=== PATIENT | female | born 1965 | race Caucasian/White ===

== ENCOUNTER → 2024-01-12 18:13 | Outpatient (REF) | payer OTHER, SELFPAY | LOC: PAVMRI 18:13 | PROVIDERS: ATTENDING PHYSICIAN Student in an Organized Health Care Education/Training Program; FAMILY PHYSICIAN Nurse Practitioner Adult Health | DX: M25.562 Pain in left knee (principal) | CPT/HCPCS: 73721 ==

== ENCOUNTER 2024-02-22 18:20 | Outpatient (RCR) | payer OTHER, SELFPAY | END 2024-02-22 23:59 | disposition home or self-care (01) | LOC: RPT 18:20 | PROVIDERS: ATTENDING PHYSICIAN Student in an Organized Health Care Education/Training Program; FAMILY PHYSICIAN Nurse Practitioner Adult Health | DX: M17.11 Unilateral primary osteoarthritis, right knee (principal); M17.12 Unilateral primary osteoarthritis, left knee; Z73.6 Limitation of activities due to disability | CPT/HCPCS: 97110; 97161 ==

== ENCOUNTER 2024-03-22 18:02 | Outpatient (RCR) | payer OTHER, SELFPAY | END 2024-03-22 23:59 | disposition home or self-care (01) | LOC: RPT 18:02 | PROVIDERS: ATTENDING PHYSICIAN Student in an Organized Health Care Education/Training Program; FAMILY PHYSICIAN Nurse Practitioner Adult Health | DX: M17.0 Bilateral primary osteoarthritis of knee (principal); S83.282D Other tear of lateral meniscus, current injury, left knee, subsequent encounter; Z73.6 Limitation of activities due to disability; R26.2 Difficulty in walking, not elsewhere classified; M62.81 Muscle weakness (generalized); R26.89 Other abnormalities of gait and mobility | CPT/HCPCS: 97110; 97112; 97530 ==

== ENCOUNTER 2024-04-06 18:05 | Outpatient (RCR) | payer OTHER, SELFPAY | END 2024-04-06 23:59 | disposition home or self-care (01) | LOC: RPT 18:05 | PROVIDERS: ATTENDING PHYSICIAN Student in an Organized Health Care Education/Training Program; FAMILY PHYSICIAN Nurse Practitioner Adult Health | DX: M17.0 Bilateral primary osteoarthritis of knee (principal); S83.282D Other tear of lateral meniscus, current injury, left knee, subsequent encounter; Z73.6 Limitation of activities due to disability; R26.2 Difficulty in walking, not elsewhere classified; M62.81 Muscle weakness (generalized); R26.89 Other abnormalities of gait and mobility | CPT/HCPCS: 97110 ==

== ENCOUNTER → 2024-10-05 13:49 | Outpatient (REF) | payer OTHER, SELFPAY | LOC: HWWDC 13:49 | PROVIDERS: ATTENDING PHYSICIAN Nurse Practitioner Adult Health | DX: Z12.31 Encounter for screening mammogram for malignant neoplasm of breast (principal); Z78.0 Asymptomatic menopausal state | CPT/HCPCS: 77063; 77067; 77080 ==

== ENCOUNTER 2024-12-14 06:22 | Day surgery (SDC) | payer OTHER, SELFPAY | END 2024-12-14 14:31 | disposition home or self-care (01) | LOC: GI 06:22 | PROVIDERS: ATTENDING PHYSICIAN Internal Medicine Gastroenterology | DX: Z12.11 Encounter for screening for malignant neoplasm of colon (principal); D12.0 Benign neoplasm of cecum; K57.30 Diverticulosis of large intestine without perforation or abscess without bleeding; K62.89 Other specified diseases of anus and rectum; K29.50 Unspecified chronic gastritis without bleeding; K22.2 Esophageal obstruction; K22.89 Other specified disease of esophagus; K21.9 Gastro-esophageal reflux disease without esophagitis; K44.9 Diaphragmatic hernia without obstruction or gangrene; R13.10 Dysphagia, unspecified; Z83.719 Family history of colon polyps, unspecified | CPT/HCPCS: 45380; 43239; 88305; 88342 ==

== ENCOUNTER 2025-07-25 20:22 | Inpatient (IN) | payer OTHER, SELFPAY ==
[2025-07-25] VITALS (10 sets, daily range): BP systolic 80–122; BP diastolic 46–81; BMI 32.5; BMI 33.2
--- NOTE | 2025-07-25 17:07 | ED.GENMED ---
History of Present Illness
<Samantha Osullivan NP - Last Filed: 07/25/25 19:15>
General
Chief Complaint: Abdominal Symptoms
Source: patient
Exam Limitations: none
Time Seen by Provider: 07/25/25 16:54
Nursing documentation reviewed up to this point in time: agreed with
History of Present Illness
History of Present Illness:
Patient to emergency department with complaint of severe nausea vomiting and diarrhea. She reports returning from a stay in [place] on Wednesday. Wednesday her symptoms began. She first noted fatigue and bodyaches, followed by her GI symptoms. She
reports symptoms continued to intensify since then. She was seen at urgent care prior to coming here today. While at urgent care she developed shaking chills and was advised to come to the emergency department. Prior to leaving urgent care she
was given a dose of azithromycin to treat traveler's diarrhea. She was also given a dose of Zofran. She denies any abdominal pain.
Past History
<Samantha Osullivan OXIDE FURNACE TENDER - Last Filed: 07/25/25 19:15>
Past History
ED Past Medical History: Arrthythmia, Asthma, GERD, Hypercholesterolemia, Hypothyroidism and Other (Diverticulitis, kidney stones, and pneumonia in the past)
ED Past Surgical History: Cardiac (Ablation for atrial fibrillation), Cholecystectomy, and Gynecological
Social History
Tobacco: Non-smoker
Personal:
Living: with family
Employment: Employed
Family History
Family History: Unable to obtain
Review of Systems
<Samantha Osullivan NP - Last Filed: 07/25/25 19:15>
Review of Systems
Allergies reviewed?: Yes
All Other Systems: ROS reviewed and negative except as documented in HPI and ROS
Constitutional: Reports fatigue and chills (Shaking chills)
EENT: Reports no symptoms
Respiratory: Reports no symptoms
Cardiac: Reports no symptoms
ABD/GI: Reports nausea, vomiting and diarrhea
: Reports no symptoms
Musculoskeletal: Reports other (Bodyaches 3 days ago)
Skin: Reports no symptoms
Neurological: Reports weakness
Psychiatric: Reports no symptoms
Phy Exam
<Samantha Osullivan OXIDE FURNACE TENDER - Last Filed: 07/25/25 19:15>
General Physical Exam
General Presentation: moderate distress
General age: appears stated age
General Skin: warm and dry
General Habitus: normal
Cardiovascular Exam
Cardiovascular Exam: regular rate/rhythm and no edema
Gastrointestinal Exam
Gastrointestinal Exam: non tender, soft, no organomegaly, no pulsatile mass and non distended
Musculoskeletal Exam
Musculoskeletal Exam: full ROM and neuro vasc intact
Skin Exam
Skin Exam: normal color, warm/dry and no rash
Psychiatric Exam
Psychiatric Exam: normal mood/affect
Course
<Samantha Osullivan, OXIDE FURNACE TENDER - Last Filed: 07/25/25 19:15>
Orders/Labs/Results
Orders:
Orders
07/25/25 17:05
0.9% Sodium Chloride 1000 ml [Nss] 1,000 ml IV BOLUS
Ketorolac [Toradol] 30 mg IV NOW STA
07/25/25 17:33
COVID-19 Antigen Urgent
Source: Nasal Swab
Complete Blood Count/With Diff Urgent
Comprehensive Metabolic Panel Urgent
Lactic Acid Urgent
Lipase Urgent
Magnesium Urgent
Comment: ADD ON
Influenza A+B Rapid Molecular Urgent
CATHY Source: Nasal Swab
Specimen Description:
07/25/25 17:35
Norovirus by PCR Urgent
CATHY Source: Feces/Stool
Specimen Description:
Date Specimen was Collected: 07/25/25
Time Specimen was Collected: 17:37
STOOL [C difficile Antigen & Toxins] Urgent
CATHY Source: Feces/Stool
Specimen Description:
Date Specimen was Collected: 07/25/25
Time Specimen was Collected: 17:30
Stool Culture Urgent
CATHY Source: Feces/Stool
Specimen Description:
Date Specimen was Collected: 07/25/25
Time Specimen was Collected: 17:30
07/25/25 17:37
Add On - Microbiology Urgent
Tests Added?: norovirus by pcr
07/25/25 18:10
Add On- LAB Urgent
Tests Added?: magnesium
07/25/25 18:13
Potassium Chloride [KCl] 40 meq 0.9% Sodium Chloride 250 ml [Nss] 250 ml IV NOW
07/25/25 18:17
LevoFLOXacin 500 MG/100 ML [Levaquin] 500 mg in 100 ml IV NOW
07/25/25 18:30
Acetaminophen [Tylenol] 1,000 mg PO NOW STA
Abnormal Lab Results
07/25/25
17:33
WBC 4.6 L 10^3/uL
(4.8-10.8)
MPV 10.8 H fL
(7.4-10.4)
Monocytes % 10.1 H %
(1.7-9.3)
Sodium 134 L mmol/L
(135-145)
Potassium 2.6 L* mmol/L
(3.5-5.1)
BUN 29 H mg/dl
(7-17)
Creatinine 1.3 H mg/dL
(0.6-1.0)
Glucose 106 H mg/dl
(70-99)
07/25/25 17:33
07/25/25 17:33
Vital Signs
Initial and Last Documented VS:
Initial Vital Signs
Temp Pulse Resp BP Pulse Ox
100.4 F H 111 16 119/81 95
07/25/25 16:45 07/25/25 16:45 07/25/25 16:45 07/25/25 16:45 07/25/25 16:45
Last Documented Vital Signs
Temp Pulse Resp BP Pulse Ox
101.4 F H 111 16 112/69 95
07/25/25 18:30 07/25/25 16:45 07/25/25 16:45 07/25/25 18:02 07/25/25 17:11
<[address], DO - Last Filed: 07/25/25 17:41>
Orders/Labs/Results
Orders:
Orders
07/25/25 17:05
0.9% Sodium Chloride 1000 ml [Nss] 1,000 ml IV BOLUS
Ketorolac [Toradol] 30 mg IV NOW STA
07/25/25 17:33
COVID-19 Antigen Urgent
Source: Nasal Swab
Complete Blood Count/With Diff Urgent
Comprehensive Metabolic Panel Urgent
Lactic Acid Urgent
Lipase Urgent
Magnesium Urgent
Comment: ADD ON
Influenza A+B Rapid Molecular Urgent
CATHY Source: Nasal Swab
Specimen Description:
07/25/25 17:35
Norovirus by PCR Urgent
CATHY Source: Feces/Stool
Specimen Description:
Date Specimen was Collected: 07/25/25
Time Specimen was Collected: 17:37
STOOL [C difficile Antigen & Toxins] Urgent
CATHY Source: Feces/Stool
Specimen Description:
Date Specimen was Collected: 07/25/25
Time Specimen was Collected: 17:30
Stool Culture Urgent
CATHY Source: Feces/Stool
Specimen Description:
Date Specimen was Collected: 07/25/25
Time Specimen was Collected: 17:30
07/25/25 17:37
Add On - Microbiology Urgent
Tests Added?: norovirus by pcr
07/25/25 18:10
Add On- LAB Urgent
Tests Added?: magnesium
07/25/25 18:13
Potassium Chloride [KCl] 40 meq 0.9% Sodium Chloride 250 ml [Nss] 250 ml IV NOW
07/25/25 18:17
LevoFLOXacin 500 MG/100 ML [Levaquin] 500 mg in 100 ml IV NOW
07/25/25 18:30
Acetaminophen [Tylenol] 1,000 mg PO NOW STA
Abnormal Lab Results
07/25/25
17:33
WBC 4.6 L 10^3/uL
(4.8-10.8)
MPV 10.8 H fL
(7.4-10.4)
Monocytes % 10.1 H %
(1.7-9.3)
Sodium 134 L mmol/L
(135-145)
Potassium 2.6 L* mmol/L
(3.5-5.1)
BUN 29 H mg/dl
(7-17)
Creatinine 1.3 H mg/dL
(0.6-1.0)
Glucose 106 H mg/dl
(70-99)
07/25/25 17:33
07/25/25 17:33
Vital Signs
Initial and Last Documented VS:
Initial Vital Signs
Temp Pulse Resp BP Pulse Ox
100.4 F H 111 16 119/81 95
07/25/25 16:45 07/25/25 16:45 07/25/25 16:45 07/25/25 16:45 07/25/25 16:45
Last Documented Vital Signs
Temp Pulse Resp BP Pulse Ox
101.4 F H 111 16 112/69 95
07/25/25 18:30 07/25/25 16:45 07/25/25 16:45 07/25/25 18:02 07/25/25 17:11
<Samantha Osullivan [employer]XIDE F[employer]NACE TENDER - Last Filed: 07/25/25 19:15>
*Pulse Oximetry
SaO2: 95
Oxygen Mode of Delivery: Room air
Patient hypoxic: no
*Critical Care Note
Total Time (30-74mins, 75-104mins- exclusive of procedures): Not Applicable
<Samantha Osullivan NP - Last Filed: 07/25/25 19:15>
Update Note
Update Note:
Patient to the emergency department with complaint of severe diarrhea, fever, shaking chills. Symptoms started on Wednesday. She reports she returned from [place] 2 days before symptoms started. Temp on arrival to ED is 100.4. Rigors noted. She
was given 2 L normal saline and 30 mg Toradol IV. She received Zofran from urgent care just prior to arrival. she was also given a dose of azithromycin at urgent care. Labs reviewed. WBC of 4.6 with a lactic of 1.9. Sodium 134 potassium 2.6 BUN
29 creatinine 1.3. Consistent with acute dehydration. 40 meq K iv ordered. she continues with diarrhea while in ED, stool Cultures obtained and sent. Results are pending. Suspect travelers diarrhea. Will start Levaquin 500 mg IV in ED and
admit to the hospitalist. Lab results discussed with patient and spouse. She is agreeable to admission.
ED Attending Note
<Samantha Osullivan OXIDE FURNACE TENDER - Last Filed: 07/25/25 19:15>
-
Portions of this chart may have been created with voice recognition software.� Occasional wrong word or��sound alike� substitutions may have occurred due to the inherent limitations of voice recognition software.
<[address] DO - Last Filed: 07/25/25 17:41>
ED Attending Note
Patient seen and examined by attending physician: Yes
I performed the substantive portion of visit, reviewed & personally made and approve the management plan that is documented in note by myself or LAKESHIA.: Yes
ED Attending Note:
Seen with OXIDE FURNACE TENDER examined independently 60-year-old female asthma on Dupixent fever diarrhea recent travel to [place], antibiotics a month ago for UTI was on Zithromax for traveler's diarrhea continues to have fever chills
Discharge Plan
Departure
Patient Disposition: Admit
Date of Disposition: 07/25/25
Time of Disposition: 18:19
Presentation/result/management discussed w/ accepting MD/DO: Hospitalist
Patient with high blood pressure during this ER visit?: No
Condition: Fair
Covid-19: Not Applicable
Discharge Problem:
Acute diarrhea, Acute dehydration, Acute hypokalemia
Prescriptions:
No Action
montelukast 10 MG tablet
10 mg PO DAILY
biotin 5 MG capsule
10 mg PO DAILY
esomeprazole magnesium [Nexium] 40 MG capsule,delayed release(DR/EC)
40 mg PO DAILY
loratadine 10 MG tablet
10 mg PO DAILY
budesonide 32 mcg/actuation Aerosol
2 mcg INTRANASAL BID
levothyroxine [Synthroid] 137 mcg Tablet
137 mcg PO MOTUWETHFRSA
levothyroxine [Synthroid] 137 mcg Tablet
274 mcg PO FLORES
cyanocobalamin (vitamin B-12) 1,000 mcg Tablet
1,000 mcg PO DAILY
allopurinol 100 mg Tablet
100 mg PO DAILY
gemfibrozil 600 mg Tablet
600 mg PO DAILY
cholecalciferol (vitamin D3) [Vitamin D3] 25 mcg (1,000 unit) Tablet
25 mcg PO DAILY
icosapent ethyl [Vascepa] 1 gram Capsule
4 g PO DAILY
Dupixent Syringe 300 mg/2 mL Syringe
300 mg SC Q2W
Qvar RediHaler 40 mcg/actuation Hfa Aerosol Breath Activated
2 inh INHALATION R BID
Niacinamide/Tirepatide Inject
85 units SC TH
Referrals:
Katrhin Kessler CRNP [Family Provider, General]
Interventions
Interventions:
*Risk Screen - Suicide Last Done: 07/25/25 16:45
*General Assessment Last Done: 07/25/25 17:07
*Neglect/Abuse Screening Last Done: 07/25/25 16:45
*ED- Fall Risk Assessment Last Done: 07/25/25 17:07
*ED COVID-19 Vaccine History Last Done: 07/25/25 17:07
*ED Influenza Vaccine History Last Done: 07/25/25 17:07
GQ-Vtwbzm-Cbkdmakkzr Assessment Last Done: 07/25/25 17:11
Discharge Date and Time
Print Language: ARGENTINE
[2025-07-25] MEDS: NSS 1000 IV (17:39)
[2025-07-25] MEDS: TORADOL 30 MG IV (17:40)
[2025-07-25 17:41] LABS: Hematocrit 37.1 % (37.0-47.0); Hemoglobin 12.7 g/dL (12.0-16.0); Mean Corp Hgb Conc. 34.2 g/dL (33.0-37.0); Mean Corpuscular Volume 85.3 fL (81.0-99.0); Nucleated Red Blood Cells % 0 %; Platelet Count 227 10^3/uL (130-400); Red Cell Dist. Width 13.1 % (11.5-14.5)
[2025-07-25 17:57] LABS: COVID-19 Antigen Negative (Negative)
[2025-07-25 18:08] LABS: ALT (SGPT) 26 U/L (0-35); AST (SGOT) 24 U/L (14-36); Albumin 4.2 g/dl (3.5-5.0); Alkaline Phosphatase 76 U/L (38-126); Blood Urea Nitrogen 29 mg/dl (7-17); Calcium 9.1 mg/dl (8.4-10.2); Carbon Dioxide 22 mmol/L (22-30); Chloride 98 mmol/L (98-107); Glucose 106 mg/dl (70-99); Lipase 65 U/L (23-300); Potassium 2.6 mmol/L (3.5-5.1); Sodium 134 mmol/L (135-145); Total Protein 7.2 g/dl (6.3-8.2); eGFR 47.66
[2025-07-25] MEDS: LEVAQUIN 100 IV (18:21)
[2025-07-25] MEDS: TYLENOL 1000 MG PO (18:38)
[2025-07-25 19:17] LABS: Magnesium 1.7 mg/dl (1.6-2.3)
--- NOTE | 2025-07-25 19:19 | HPS.HSE ---
Family Physician
-
Family Physician: Kathrin Kessler
Chief Complaint
-
Diarrhea
History of Present Illness
Patient is a generally healthy 60-year-old with past medical history significant for hypothyroid, asthma, hyperlipidemia who presents to the emergency department following episodes of diarrhea that started about 3 days ago.
Patient reported that she had transfers from from a tree from [place] on Wednesday. She started having loose stools on Wednesday which is not unusual for her due to a history of cholecystectomy. However on Wednesday she developed chills rigors and fever
and then started having watery diarrhea. It was nonbloody. She reports nausea but no vomiting. She denies abdominal pain except for cramps from diarrhea. She is able to tolerate p.o. but anytime she eats she has nausea and then massive diarrhea.
She denies any other family members with similar symptoms. She denies any new medications.
Patient reported that her last use of antibiotics was about a month ago where she used Macrobid for a urinary tract infection.
In the emergency department she had a Tmax of 101.4, blood pressure was 112/69 with a pulse rate of 111 and she was satting 95% on room air. She had a white count of 4.6 hemoglobin 12.7 and a plate count of 227. Electrolytes notable for a
potassium of 2.6 elevated creatinine to 1.3. COVID test flu test negative. Lactic acid negative. LFTs unremarkable.
Medical History
Past Medical History
Past Medical History: Reports Arrhythmia (Paroxysmal atrial fibrillation status post ablation), Asthma, GERD, Hypercholesterolemia, Hypothyroidism and Other (migraine, M�ni�re's disease)
Past Surgical History: Reports Cholecystectomy, and Gynocological (Hysterectomy)
Social History
Tobacco: Non-smoker
Alcohol: None
Drug: None
Personal:
Family History
Family History: Not pertinent
Allergies / Home Medications
Allergies reflects when Allergies were last updated in [employer].
Home Medications with original date entered in [employer]
Allergy/Medication List:
Allergies
Allergy/AdvReac Type Severity Reaction Status Date / Time
acetaminophen (From Percocet) Allergy Unknown Verified 03/30/23 12:47
adhesive Allergy Unknown Verified 03/30/23 12:47
niacin (From Niaspan Allergy Hives Verified 03/30/23 12:47
Extended-Release)
oxycodone HCl (From Percocet) Allergy Unknown Verified 03/30/23 12:47
Penicillins Allergy Hives Verified 03/30/23 12:47
Home Medications
montelukast 10 mg tablet 10 mg PO DAILY Lung/breathing issues 09/08/16
biotin 5 mg capsule 10 mg PO DAILY Supplement 12/28/18
esomeprazole magnesium 40 mg capsule,delayed release (Nexium) 40 mg PO DAILY Gastrointestinal issue 06/02/19
loratadine 10 mg tablet 10 mg PO DAILY Allergies 02/14/21
Niacinamide/Tirepatide Inject 85 units SC TH 07/25/25
allopurinol 100 mg tablet 100 mg PO DAILY Gout 07/25/25
beclomethasone dipropionate 40 mcg/actuation HFA breath activated aerosol (Qvar RediHaler) 2 inh inhalation R BID sob 07/25/25
budesonide 32 mcg/actuation nasal spray,aerosol 2 mcg intranasal BID 07/25/25
cholecalciferol (vitamin D3) 25 mcg (1,000 unit) tablet (Vitamin D3) 25 mcg PO DAILY Supplement 07/25/25
cyanocobalamin (vitamin B-12) 1,000 mcg tablet 1,000 mcg PO DAILY Supplement 07/25/25
dupilumab 300 mg/2 mL subcutaneous syringe (Dupixent) 300 mg SC Q2W 07/25/25
gemfibrozil 600 mg tablet 600 mg PO DAILY Diabetes 07/25/25
icosapent ethyl 1 gram capsule (Vascepa) 4 g PO DAILY Supplement 07/25/25
levothyroxine 137 mcg tablet (Synthroid) 137 mcg PO MOTUWETHFRSA Thyroid 07/25/25
levothyroxine 137 mcg tablet (Synthroid) 274 mcg PO FLORES Thyroid 07/25/25
Review of Systems
-
Constitutional: Reports No Symptoms
EENT: Reports No Symptoms
Respiratory: Reports No Symptoms
Cardiac: Reports No Symptoms
Abdomen/GI: Reports Diarrhea
: Reports No Symptoms
Musculoskeletal: Reports No Symptoms
Skin: Reports No Symptoms
Neurological: Reports No Symptoms
Endocrine: Reports No Symptoms
Hematologic/Lymphatic: Reports No Symptoms
Psych: Reports No Symptoms
Physical Exam
Vital Signs
Vital Signs
Temp Pulse Resp BP Pulse Ox
101.4 F H 111 16 112/69 95
07/25/25 18:30 07/25/25 16:45 07/25/25 16:45 07/25/25 18:02 07/25/25 17:11
Physical Exam
General: Well Developed, Well Nourished and No Apparent Distress
HEENT: NormoCephalic, Moist mucous membranes and Atraumatic
Respiratory: Clear
Cardiac: S1/S2 and Regular Rhythm; No Murmur or Rub
GI: Soft, Non Tender, Non Distended and Normal Bowel Sounds; No Organomegaly
Rectal: Deferred by Provider
Musculoskeletal: No Clubbing, No Cyanosis and No Edema
Skin: No Rash
Neuro: AO x 3 and Nonfocal/grossly intact
Laboratory Results
-
07/25/25 17:33
07/25/25 17:33
Laboratory Results
Lactic Acid 1.9 mmol/L (0.7-2.0) 07/25/25 17:33
Total Bilirubin 0.7 mg/dl (0.2-1.3) 07/25/25 17:33
AST 24 U/L (14-36) 07/25/25 17:33
ALT 26 U/L (0-35) 07/25/25 17:33
Alkaline Phosphatase 76 U/L (38-126) 07/25/25 17:33
Lipase 65 U/L (23-300) 07/25/25 17:33
Data Reviewed
-
Lab Data: Labs Reviewed by me
Old Records: Reviewed
Impression/Plan
-
IMPRESSION:
60-year-old with likely traveler's diarrhea versus infectious colitis presenting to the emergency department with mild diarrhea and hypovolemia and hypokalemia with mild TIFFANIE. Due to fever chills rigors patient will be admitted for antibiotic and
fluid resuscitation.
PLAN:
Diarrhea -suspect dysentery/traveler's diarrhea. No abdominal pain. She is hemodynamically stable but slightly tachycardic and febrile. Viral studies negative.
-Admit to [facility] for now
-Stool studies have been sent including C. difficile
-Patient started on Levaquin, will continue for now, would prefer azithromycin but levaquin was initiated pending stool studies
-Diet as tolerated
-Fluid and electrolyte resuscitation
-Blood cultures if recurrent fever
Hypothyroid
-Continue Synthroid
GERD
-Continue PPI
Asthma -no active complaints
-Continue montelukast
-Continue inhaled steroids
-Continue as needed albuterol
DVT prophylaxis�Lovenox subcu
CODE STATUS�full code
[2025-07-25] MEDS: KCL 40 MEQ PO (19:56)
[2025-07-25] MEDS: KCL 270 MEQ IV (19:56)
[2025-07-25] MEDS: LR 500 IV (21:28)
[2025-07-25] MEDS: FLOVENT 44 MCG INHALER 2 PUFF INH (22:06)
[2025-07-25] MEDS: LR 1000 IV (22:37)
--- NOTE | 2025-07-25 23:17 | PTCARENOTE ---
Pt admitted to rm 326 and walked from stretcher to bed with steady gait. KCL 40meq w/ saline running into LAC w/ 1000ml bag of NSS y-sited. Pt BP 89/54, manual BP 80/46. Pt asymptomatic. [employer] MACHINE notified, LR 500mls ordered to run over an hour ordered.
After bolus, manual BP 90/50. Pt asymptomatic. [employer]ING MACHINE notified, instructed to start scheduled fluids. Ordered LR at 125mls started. Pt instructed to call staff to walk to the bathroom. Call fofana within reach and plan of care ongoing.
[2025-07-26 01:10] LABS: Blood Urea Nitrogen 24 mg/dl (7-17); Calcium 7.8 mg/dl (8.4-10.2); Carbon Dioxide 19 mmol/L (22-30); Chloride 110 mmol/L (98-107); Estimated Creatinine Clearance 61 ml/min; Glucose 97 mg/dl (70-99); Potassium 3.5 mmol/L (3.5-5.1); Sodium 138 mmol/L (135-145); eGFR 58.24
[2025-07-26] MEDS: TYLENOL 650 MG PO ×4 (03:24→17:46)
[2025-07-26 03:38] VITALS: BP 97/54
[2025-07-26] MEDS: SYNTHROID 137 MCG PO (05:36)
[2025-07-26] MEDS: LR 1000 IV ×3 (06:21→22:03)
[2025-07-26 07:35] VITALS: BP 95/51
[2025-07-26] MEDS: CLARITIN 10 MG PO (08:04)
[2025-07-26] MEDS: VITAMIN B-12 1000 MCG PO (08:04)
[2025-07-26] MEDS: SINGULAIR 10 MG PO (08:05)
[2025-07-26] MEDS: PROTONIX 40 MG PO (08:05)
[2025-07-26 08:14] LABS: Blood Urea Nitrogen 18 mg/dl (7-17); Calcium 8.1 mg/dl (8.4-10.2); Carbon Dioxide 23 mmol/L (22-30); Chloride 109 mmol/L (98-107); Estimated Creatinine Clearance 67 ml/min; Glucose 87 mg/dl (70-99); Magnesium 1.6 mg/dl (1.6-2.3); Potassium 3.6 mmol/L (3.5-5.1); Sodium 138 mmol/L (135-145); eGFR > 60.00
[2025-07-26 08:20] LABS: Hematocrit 29.3 % (37.0-47.0); Hemoglobin 9.8 g/dL (12.0-16.0); Mean Corp Hgb Conc. 33.4 g/dL (33.0-37.0); Mean Corpuscular Volume 87.7 fL (81.0-99.0); Red Cell Dist. Width 13.3 % (11.5-14.5)
[2025-07-26] MEDS: FLOVENT 44 MCG INHALER 2 PUFF INH ×2 (08:21→19:30)
--- NOTE | 2025-07-26 09:04 | W.PN.HOSP.TC ---
Today's Communication/Plan
-
Recheck CBC at 1 pm today
C/ W IVF & IV aBx
Assessment / Plan
Assessment / Plan
Physical Exam
General: Well Developed, Well Nourished and No Apparent Distress
HEENT: Normocephalic, Moist mucous membranes and Atraumatic
Respiratory: Clear
Cardiac: S1/S2 and Regular Rhythm; No Murmur or Rub
GI: Soft, Non Tender, Non Distended and Normal Bowel Sounds.
Rectal: no bleeding
Musculoskeletal: No Clubbing, No Cyanosis and No Edema
Skin: No Rash
Neuro: AO x 3 and Nonfocal/grossly intact
Psych: calm
60-year-old with likely traveler's diarrhea versus infectious colitis presenting to the emergency department with mild diarrhea and hypovolemia and hypokalemia with mild TIFFANIE. Due to fever chills rigors patient will be admitted for antibiotic and
fluid resuscitation.
PLAN:
# Acute infectious Diarrhea -suspect dysentery/traveler's diarrhea. No abdominal pain. She is hemodynamically stable but slightly tachycardic and febrile. Viral studies negative.
She reports feeling better
less chills
No abdominal pain or fevers
Diarrhea non bloody
-Stool studies : negative Noro & C. difficile
-Patient started on Levaquin, will continue for now.
-Diet as tolerated
-Fluid and electrolyte resuscitation
-Blood cultures if recurrent fever
- Appreciate gI help
# Drop in HGB & plts count, ? dilutional Vs acute blood loss anemia
Non blood stools, reported brown in color
No hypotension or tachycardia
Not toxic looking
Will recheck H & H this afternoon
# TIFFANIE
resolving
c/w IVF
# Hypokalemia, replaced
# Hyponatremia
Mild, resolved.
# hypomagnesemia
Replace with Mg
Hypothyroid
-Continue Synthroid
GERD
-Continue PPI
Asthma -no active complaints
-Continue montelukast
-Continue inhaled steroids
-Continue as needed albuterol
DVT prophylaxis�Lovenox subcu
CODE STATUS�full code
Total time spent to see the patient, examined the patient, review data and lab result, discuss treatment plan with patient, nursing staff around 55 minutes
Anticipated Discharge: 24 - 48 hours
Subjective/Interval History
-
Date of Service: July 26, 2025
No chest pain
No abdominal pain
Less chills
Objective Data
-
Labs:
Laboratory Results
07/26/25 07/26/25
00:38 06:30
WBC 4.3 L
Hgb 9.8 L D
Hct 29.3 L
Plt Count Pending
Sodium 138 138
Potassium 3.5 D 3.6
Chloride 110 H 109 H
Carbon Dioxide 19 L 23
BUN 24 H 18 H
Creatinine 1.1 H 1.0
Glucose 97 87
Calcium 7.8 L 8.1 L
Vital Signs:
Vital Signs
Temp Pulse Resp BP Pulse Ox
100.2 F 82 16 95/51 99
07/26/25 07:35 07/26/25 08:22 07/26/25 08:22 07/26/25 07:35 07/26/25 08:22
I&O
07/25/25 07/26/25 07/27/25
06:59 06:59 06:59
Intake Total 480 / 480
Balance 480 / 480
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
[2025-07-26 10:51] LABS: Platelet Count 155 10^3/uL (130-400)
[2025-07-26] MEDS: ZYLOPRIM 100 MG PO (11:57)
[2025-07-26] MEDS: MAGNESIUM SULFATE 100 IV (13:29)
[2025-07-26 13:38] LABS: Hematocrit 30.2 % (37.0-47.0); Hemoglobin 9.9 g/dL (12.0-16.0); Mean Corp Hgb Conc. 32.8 g/dL (33.0-37.0); Mean Corpuscular Volume 86.5 fL (81.0-99.0); Platelet Count 176 10^3/uL (130-400); Red Cell Dist. Width 13.4 % (11.5-14.5)
[2025-07-26] MEDS: TORADOL 10 MG IV ×2 (13:53→21:25)
[2025-07-26 15:10] LABS: TSH 0.09 uIU/ml (0.47-4.68)
--- NOTE | 2025-07-26 15:10 | CM ---
AIYANA met with Marva to complete IA. She lives with her spouse in a 3 story home.
Pt independent with adls, ambulation and driving prior to admission.
Denies VN/SNF.
[2025-07-26 15:29] VITALS: BP 93/52
[2025-07-26] MEDS: LOVENOX SC (17:47)
[2025-07-26] MEDS: LEVAQUIN 100 IV (17:52)
--- NOTE | 2025-07-26 18:39 | PTCARENOTE ---
pt with temp max of 102.7 at 13:14 and presented with hot skin and severe rigors. medicated with PRN Tylenol and PRN Toradol and temp recheck 14:[address] Chacon and blood culture ordered. Also, c/o headache, which improved with
dose of PRN Tylenol. tolerating low lactose diet but has had multiple liquid brown BM's t/o the shift. vss, will continue to monitor.
[2025-07-26] MEDS: FLAGYL 250 MG 50 IV (20:51)
[2025-07-26 23:00] VITALS: BP 85/36
[2025-07-26] MEDS: OFIRMEV 100 IV (23:05)
[2025-07-26] MEDS: LR 500 IV (23:06)
[2025-07-27 00:26] VITALS: BP 75/38
--- NOTE | 2025-07-27 01:03 | W.PN.UPDATE ---
Addendum entered and electronically signed by RIMA Clifton 07/27/25 05:56:
unable to tolerate iv kcl rider due to burning. will give another 40meq po. repeat bmp 1200
Addendum entered and electronically signed by RIMA Clifton 07/27/25 02:14:
HH 8.8--> denies ay bleeding. Suspect dilutional as she has been getting multiple bags of IVF. Hemetest stool
K 2.8--> po and iv kcl
mag 1.6--> 2mg iv mag
Original Note:
Update Note
Progress Note Update
Temp to 102.8. Toradol given. Ofirmev ordered. Temp down to 100.8 but bp 75/38 though asymptomatic.
Pt states her bp is often 90s/50s at baseline. Suspect low bp is due to volume losses from diarrhea and diaphoresis when fevers break.
Increase IVF, LR bolus. Give dose of midodrine.
Did explain to pt that if BP continues in 70s may need pressors.
--- NOTE | 2025-07-27 01:15 | PTCARENOTE ---
Pts temp 102.8 and BP- 85/36, Torodol given. [employer] notified. BP recheck 75/38. Ofirmev and LR Bolus given per [employer] order, temp recheck 100.8. IV fluids increased for 125 to 150, given dose of midodrine. Will continue ongoing care.
[2025-07-27 01:37] LABS: Hematocrit 26.7 % (37.0-47.0); Hemoglobin 8.8 g/dL (12.0-16.0); Mean Corp Hgb Conc. 33.0 g/dL (33.0-37.0); Mean Corpuscular Volume 86.4 fL (81.0-99.0); Nucleated Red Blood Cells % 0 %; Platelet Count 149 10^3/uL (130-400); Red Cell Dist. Width 13.3 % (11.5-14.5)
[2025-07-27 02:04] LABS: Blood Urea Nitrogen 11 mg/dl (7-17); Calcium 8.1 mg/dl (8.4-10.2); Carbon Dioxide 21 mmol/L (22-30); Chloride 107 mmol/L (98-107); Estimated Creatinine Clearance 96 ml/min; Glucose 117 mg/dl (70-99); Magnesium 1.6 mg/dl (1.6-2.3); Potassium 2.8 mmol/L (3.5-5.1); Sodium 132 mmol/L (135-145); eGFR > 60.00
[2025-07-27] MEDS: TYLENOL 650 MG PO ×4 (02:46→21:15)
[2025-07-27] MEDS: MAGNESIUM SULFATE 50 IV (03:14)
[2025-07-27] MEDS: KCL 40 MEQ PO ×2 (03:15→06:10)
[2025-07-27] MEDS: KCL 270 MEQ IV (03:15)
[2025-07-27 03:41] VITALS: BP 96/45
[2025-07-27] MEDS: FLAGYL 250 MG 50 IV ×2 (04:30→12:45)
[2025-07-27] MEDS: TORADOL 10 MG IV ×3 (06:16→20:32)
[2025-07-27 06:25] LABS: Hematocrit 31.1 % (37.0-47.0); Hemoglobin 10.4 g/dL (12.0-16.0); Mean Corp Hgb Conc. 33.4 g/dL (33.0-37.0); Mean Corpuscular Volume 87.9 fL (81.0-99.0); Platelet Count 172 10^3/uL (130-400); Red Cell Dist. Width 13.3 % (11.5-14.5)
[2025-07-27] MEDS: SYNTHROID 137 MCG PO (06:32)
--- NOTE | 2025-07-27 06:48 | W.PN.GI.CBS2 ---
Today's Communication / Plan
-
Please see assessment and plan for details.
Assessment / Plan
-
1. Diarrhea: Likely infectious given its acuity and recent travel. Stool studies negative so far. She is having significant fevers, though no leukocytosis and overall improving with much decreased frequency, starting to form, no bloody diarrhea
and benign exam. At this point we will continue supportive care, await final stool studies. If she continues to improve during the day is okay to DC from a GI standpoint, would complete 5 days of Levaquin and Flagyl empirically.
Subjective
Subjective
Date of Service: July 27, 2025
Patient with fevers overnight, the overall feeling much better, much less frequent stools, starting to form, no bloody diarrhea, no severe abdominal pain or vomiting. Tolerating some diet without difficulty.
Objective
Data Reviewed
Laboratory Data:
Laboratory Results
07/27/25 06:07
Laboratory Results
Magnesium 1.6 mg/dl (1.6-2.3) 07/27/25 01:28
Total Bilirubin 0.7 mg/dl (0.2-1.3) 07/25/25 17:33
AST 24 U/L (14-36) 07/25/25 17:33
ALT 26 U/L (0-35) 07/25/25 17:33
Alkaline Phosphatase 76 U/L (38-126) 07/25/25 17:33
Lipase 65 U/L (23-300) 07/25/25 17:33
Vital Signs and I&O:
Vital Signs
Temp Pulse Resp BP Pulse Ox
100.3 F 86 16 96/45 95
07/27/25 03:41 07/27/25 00:43 07/26/25 23:00 07/27/25 03:41 07/27/25 00:26
I&O
07/25/25 07/26/25 07/27/25
06:59 06:59 06:59
Intake Total 480 / 480 2099
Balance 480 / 480 2099
Physical Exam
Physical Exam
General: NAD
Abdomen: normal bowel sounds, soft, no tenderness, no masses or bruits, no ascites
[2025-07-27 07:30] VITALS: BP 105/54
[2025-07-27 07:40] LABS: Blood Urea Nitrogen 9 mg/dl (7-17); Calcium 8.3 mg/dl (8.4-10.2); Carbon Dioxide 22 mmol/L (22-30); Chloride 108 mmol/L (98-107); Estimated Creatinine Clearance 84 ml/min; Glucose 91 mg/dl (70-99); Iron 27 ug/dl (37-170); Potassium 3.5 mmol/L (3.5-5.1); Sodium 138 mmol/L (135-145); eGFR > 60.00
[2025-07-27] MEDS: FLOVENT 44 MCG INHALER 2 PUFF INH ×2 (07:41→19:23)
[2025-07-27 07:49] LABS: Total Iron Binding Capacity 278 ug/dl (265-497)
[2025-07-27 08:14] LABS: Ferritin 131.0 ng/ml (11.1-264.0)
[2025-07-27] MEDS: VITAMIN B-12 1000 MCG PO (08:42)
[2025-07-27] MEDS: PROTONIX 40 MG PO (08:42)
[2025-07-27] MEDS: SINGULAIR 10 MG PO (08:45)
[2025-07-27] MEDS: CLARITIN 10 MG PO (08:45)
[2025-07-27] MEDS: ZYLOPRIM 100 MG PO (08:45)
[2025-07-27] MEDS: LR 1000 IV ×2 (08:49→16:17)
--- NOTE | 2025-07-27 09:32 | W.PN.HOSP.TC ---
Today's Communication/Plan
-
f/w ID recommendations
IV Abx
Pain medicine
Assessment / Plan
Assessment / Plan
Physical Exam
General: Well Developed, Well Nourished and No Apparent Distress
HEENT: Normocephalic, Moist mucous membranes and Atraumatic
Respiratory: Clear
Cardiac: S1/S2 and Regular Rhythm; No Murmur or Rub
GI: Soft, Non Tender, Non Distended and Normal Bowel Sounds.
Rectal: no bleeding
Musculoskeletal: No Clubbing, No Cyanosis and No Edema
Skin: No Rash
Neuro: AO x 3 and Nonfocal/grossly intact
Psych: calm
60-year-old with likely traveler's diarrhea versus infectious colitis presenting to the emergency department with mild diarrhea and hypovolemia and hypokalemia with mild TIFFANIE. Due to fever chills rigors patient will be admitted for antibiotic and
fluid resuscitation.
PLAN:
# Acute infectious Diarrhea -suspect dysentery/traveler's diarrhea. No abdominal pain. She is hemodynamically stable but slightly tachycardic and febrile. Viral studies negative.
She reports feeling better but still febrile with chills.
Diarrhea non bloody
-Stool studies : negative Noro & C. difficile
-Patient started on Levaquin, added Levaquin. Added blood culture.
-Diet as tolerated
-Fluid and electrolyte resuscitation
-Blood cultures if recurrent fever
Consult ID for further recommendation
- Appreciate gI help
# Drop in HGB & plts count, likely combination of dilutional Vs acute blood loss anemia
Non blood stools, reported brown in color
No hypotension or tachycardia
Not toxic looking
# Hypokalemia, resolved
# TIFFANIE
resolving
c/w IVF
# Hypokalemia, replaced
# Hyponatremia
Mild, resolved.
# hypomagnesemia
Replace with Mg
Hypothyroid
-Continue Synthroid
GERD
-Continue PPI
Asthma -no active complaints
-Continue montelukast
-Continue inhaled steroids
-Continue as needed albuterol
DVT prophylaxis�Lovenox subcu
CODE STATUS�full code
Total time spent to see the patient, examined the patient, review data and lab result, discuss treatment plan with patient, nursing staff around 55 minutes
Anticipated Discharge: 24 - 48 hours
Subjective/Interval History
-
Date of Service: July 27, 2025
Pain and diarrhea are less
but still chills and fever Q 4 hours per pt
Objective Data
-
Labs:
Laboratory Results
07/27/25 07/27/25 07/27/25
01:28 06:07 12:00
WBC 5.5 5.9
Hgb 8.8 L 10.4 L
Hct 26.7 L 31.1 L
Plt Count 149 172
Sodium 132 L 138 Pending
Potassium 2.8 L 3.5 Pending
Chloride 107 108 H Pending
Carbon Dioxide 21 L 22 Pending
BUN 11 9 Pending
Creatinine 0.7 0.8 Pending
Glucose 117 H 91 Pending
Calcium 8.1 L 8.3 L Pending
Vital Signs:
Vital Signs
Temp Pulse Resp BP Pulse Ox
100.6 F H 85 16 105/54 95
07/27/25 07:30 07/27/25 07:45 07/27/25 07:45 07/27/25 07:30 07/27/25 07:45
I&O
07/26/25 07/27/25 07/28/25
06:59 06:59 06:59
Intake Total 480 / 480 2099 / 2099
Balance 480 / 480 2099 / 2099
--- NOTE | 2025-07-27 14:23 | CON.ID ---
Consultation
-
Date/Time Consultation Requested: 07/27/2025 0658
Date/Time Consultation Performed: 07/27/2025 1420
Requesting Provider: Dr. Chacon
Performing Provider: Dr. Cortes
Reason for Consultation: Fever, recent travel, diarrhea
Chief Complaint / Past History
History of Present Illness
Marva Mello is a 60-year-old female with a significant past medical history of GERD and diverticulitis being evaluated at the request of Dr. Chacon in regards to fever, diarrhea and recent travel. History is obtained from chart review, along
with patient interview.
The patient recently returned from a stay in [place] approximately 1 week ago. She went with her and couple and they mostly ate the same things. She reports they were only off the resort 1 time and that was to go snorkeling. No other
travelers have fallen ill. They left in [place] 1 week ago (in anticipation [place] At the time of leaving she overall was feeling well. 5 days ago she began to feel chilly and developed a fever up to 102.6 degrees she
also developed some body aches and began to have liquid diarrhea approximately 20 times per day. Diarrhea persisted all week, but 2 days ago she felt like she was going to pass out and came to the hospital for further evaluation.
At present she continues with liquid stool, although frequency has somewhat diminished. She denies any abdominal pain. She notes headache. She denies any myalgias. She denies any cough or congestion. She denies any abdominal pain, although has
some cramping just prior to stooling.
Past History
Additional Past Medical History:
Hypothyroidism
Asthma
Gout
GERD
Obesity
HLD
Endometriosis
Additional Past Surgical History:
Cholecystectomy
x 3
Hysterectomy
Allergy History:
acetaminophen (From Percocet) Allergy (Verified 03/30/23 12:47)
Unknown
adhesive Allergy (Verified 03/30/23 12:47)
Unknown
niacin (From Niaspan Extended-Release) Allergy (Verified 03/30/23 12:47)
Hives
oxycodone HCl (From Percocet) Allergy (Verified 03/30/23 12:47)
Unknown
Penicillins Allergy (Verified 03/30/23 12:47)
Hives
Medications Reviewed: Yes
Current Antibiotics:
Levofloxacin 500 mg IV q.24 hours
Metronidazole 250 mg IV q.8 hours
Social History
Tobacco: Non-Smoker
Alcohol: Occasional
Drug: None
Personal:
Living: With Family
Employment: Employed
Family History
Family History: Not Pertinent
Review of Systems
Vital Signs
Temp Pulse Resp BP Pulse Ox
99.6 F 85 16 105/54 95
07/27/25 11:45 07/27/25 07:45 07/27/25 07:45 07/27/25 07:30 07/27/25 10:45
Physical Exam
Physical Exam
Constitutional: No Acute Distress, Comfortable, Non-toxic and Obese
Head: Normocephalic
Eyes: Pupils Equal, Pupils Round, No Conjunctival Hemorrhage and Sclera Anicteric
Oral: No Thrush and No Ulcers
Cardiovascular: Regular Rate and S1/S2; Negative S3/S4
Pulmonary: Clear; Negative Wheezes, Rales or Rhonchi
Gastrointestinal: Soft, Non Tender, Non Distended, Normal Bowel Sounds, No Rebound and No Guarding
Extremities: Negative Edema, Cyanosis or Erythema
Skin: Warm and Dry; Negative Rash or Jaundice
Neurological: Awake and Alert
Psychological: Calm
Lab / Diagnostic Study Results
07/27/25 06:07
07/27/25 12:00
Abs Immat Gran (auto) 0.0 10^3/uL (0-0.05) 07/27/25 01:28
Absolute Neuts (auto) 3.0 10^3/uL (1.4-6.5) 07/27/25 01:28
Absolute Lymphs (auto) 1.9 10^3/uL (1.2-3.4) 07/27/25 01:28
Absolute Monos (auto) 0.6 10^3/uL (0.1-0.6) 07/27/25 01:28
Absolute Basos (auto) 0.0 10^3/uL (0-0.2) 07/27/25 01:28
Immature Gran % 0.5 % (0-0.5) 07/27/25 01:28
Neutrophils % 53.7 % (42.2-75.2) 07/27/25 01:28
Lymphocytes % 34.2 % (20.5-51.1) 07/27/25 01:28
Monocytes % 10.7 % (1.7-9.3) H 07/27/25 01:28
Eosinophils % 0.7 % (0-6) 07/27/25 01:28
Basophils % 0.2 % (0-2) 07/27/25 01:28
Lactic Acid 1.5 mmol/L (0.7-2.0) 07/27/25 01:28
Microbiology Results
Micro:
07/26/25 13:50 Blood Culture - Preliminary
Blood/Venous No Growth in 24 hours- Final report to follow
07/25/25 17:35 Salmonella/Shigella Culture - Preliminary
Feces/Stool Culture in Progress
Campylobacter Culture - Final
No Campylobacter species isolated.
Shiga Toxin Test - Final
No E. coli Shiga Toxin 1 or 2 detected.
Stool Leukocytes - Final
07/25/25 17:35 Cryptosporidium/Giardia - Final
Feces/Stool Negative for Cryptosporidium and/or Giardia Lamblia
antigens.
C. difficile GDH Antigen & Toxins - Final
Negative for toxigenic C.difficile
07/25/25 17:35 Norovirus (PCR) - Final
Feces/Stool Negative for Norovirus GI and GII.
07/25/25 17:33 Influenza Types A & B (EMILIO) - Final
Nasal Swab Negative for Influenza A & B, NAAT
Negative results must be combined with clinical observations
and patient history.
Nucleic Acid Amplification test (NAAT)performed on the
[employer] platform.
Assessment / Plan
Traveler's diarrhea
Fever
Hypothyroidism
Asthma
Gout
GERD
Obesity
HLD
Endometriosis
Recommendations:
Continue with empiric levofloxacin.
Discontinue further metronidazole.
Stool culture in progress.
Monitor BMP, white count and temperature curve.
Follow-up for improvement in stooling.
C. difficile testing is negative; may consider use of loperamide.
--- NOTE | 2025-07-27 14:35 | CM ---
Pt continues to follow for discharge planning. Marva is independent in her room, anticipate returning home at discharge with no identified needs.
[2025-07-27 16:00] VITALS: BP 85/54
[2025-07-27] MEDS: LR IV (16:23)
[2025-07-27 17:31] VITALS: BP 93/54
[2025-07-27] MEDS: LEVAQUIN 100 IV (18:13)
[2025-07-27] MEDS: LOVENOX SC (18:13)
[2025-07-27 23:00] VITALS: BP 102/58
[2025-07-28] MEDS: LR 1000 IV (00:02)
[2025-07-28] MEDS: IMITREX 50 MG PO ×3 (02:33→15:20)
[2025-07-28] MEDS: TYLENOL 650 MG PO ×2 (02:40→22:10)
--- NOTE | 2025-07-28 03:55 | PTCARENOTE ---
Patient rang call fofana, complained of SOB, appears dyspneic. pulse ox 96% on room air. lungs now with crackles in left base. Oxygen applied, notified SENIOR LIVING ADVISOR, orders received for lasix and CXR. IVF stopped, labs drawn
[2025-07-28] MEDS: LASIX 20 MG IV (04:17)
[2025-07-28 04:36] LABS: Hematocrit 26.5 % (37.0-47.0); Hemoglobin 9.4 g/dL (12.0-16.0); Mean Corp Hgb Conc. 35.5 g/dL (33.0-37.0); Mean Corpuscular Volume 83.1 fL (81.0-99.0); Platelet Count 156 10^3/uL (130-400); Red Cell Dist. Width 12.9 % (11.5-14.5)
--- NOTE | 2025-07-28 04:56 | W.PN.UPDATE ---
Addendum entered and electronically signed by RIMA Clifton 07/28/25 06:48:
post lasix pt feeling better. Able to lay flat in bed again
K3.4---kcl po ordered
mag 1.5 --> mag rider ordered
BNP 3350
Original Note:
Update Note
Progress Note Update
0400 RN reports pt c/o of SOB, new crackles. oxygen 96%
Earlier in shift she was c/o of feeling puffy with bloat from ivf and rate was decreased. Now with orthopnea. Ankles and feet +2 edema and hands with edema.
Likely iatrogenic overload from high amt of IVF needed for volume depletion secondary to GI losses
pt with hx of asthma but states this is not like her asthma flares.
CXR c/w edema
Check labs with bnp
lasix x1
dc ivf --bp improved today and less diarrhea now
[2025-07-28 04:59] LABS: ALT (SGPT) 18 U/L (0-35); AST (SGOT) 16 U/L (14-36); Albumin 2.9 g/dl (3.5-5.0); Alkaline Phosphatase 62 U/L (38-126); Blood Urea Nitrogen 8 mg/dl (7-17); Calcium 8.2 mg/dl (8.4-10.2); Carbon Dioxide 21 mmol/L (22-30); Chloride 110 mmol/L (98-107); Estimated Creatinine Clearance 112 ml/min; Glucose 106 mg/dl (70-99); Magnesium 1.5 mg/dl (1.6-2.3); Potassium 3.4 mmol/L (3.5-5.1); Sodium 135 mmol/L (135-145); Total Protein 5.6 g/dl (6.3-8.2); eGFR > 60.00
[2025-07-28] MEDS: MAGNESIUM SULFATE 50 IV (05:30)
[2025-07-28] MEDS: KCL 40 MEQ PO ×4 (05:30→22:04)
[2025-07-28] MEDS: SYNTHROID 137 MCG PO (05:52)
[2025-07-28 07:00] VITALS: BP 101/64
[2025-07-28 08:15] VITALS: BMI 34.4
[2025-07-28] MEDS: FLOVENT 44 MCG INHALER 2 PUFF INH ×2 (08:25→20:25)
[2025-07-28] MEDS: VITAMIN B-12 1000 MCG PO (08:26)
[2025-07-28] MEDS: PROTONIX 40 MG PO (08:26)
[2025-07-28] MEDS: CLARITIN 10 MG PO (08:26)
[2025-07-28] MEDS: SINGULAIR 10 MG PO (08:26)
[2025-07-28] MEDS: ZYLOPRIM 100 MG PO (08:26)
--- NOTE | 2025-07-28 09:30 | W.PN.HOSP.TC ---
Today's Communication/Plan
-
c/w IV Levaquin
Lasix
Potassium Replace Mg
Imitrex PRN
Assessment / Plan
Assessment / Plan
Physical Exam
General: Well Developed, Well Nourished and No Apparent Distress
HEENT: Normocephalic, Moist mucous membranes and Atraumatic
Respiratory: Clear
Cardiac: S1/S2 and Regular Rhythm; No Murmur or Rub
GI: Soft, Non Tender, Non Distended and Normal Bowel Sounds.
Rectal: no bleeding
Musculoskeletal: No Clubbing, No Cyanosis and No Edema
Skin: No Rash
Neuro: AO x 3 and Nonfocal/grossly intact
Psych: calm
60-year-old with likely traveler's diarrhea versus infectious colitis presenting to the emergency department with mild diarrhea and hypovolemia and hypokalemia with mild TIFFANIE. Due to fever chills rigors patient will be admitted for antibiotic and
fluid resuscitation.
PLAN:
# Acute infectious Diarrhea -suspect dysentery/traveler's diarrhea. No abdominal pain. Stool studies negative. Viral studies negative.
She reports feeling better, less febrile with chills.
Diarrhea non bloody
-Stool studies : negative Noro & C. difficile
-Patient started on Levaquin. Blood culture NGTD.
-Diet as tolerated
-Fluid and electrolyte resuscitation
-Blood cultures if recurrent fever
Consult ID for further recommendation
- Appreciate gI help
# Drop in HGB & plts count, likely combination of dilutional Vs acute blood loss anemia
Non blood stools, reported brown in color
No hypotension or tachycardia
Not toxic looking
# Acute non-cardiogenic pulmonary edema from IVF and infection
She feels sob at times but no hypoxia. Lung exam: no rales, she reports ankle swelling both sides
Weight almost gained 6-7 pounds since admission
will give IV Lasix, monitor weight/ BMP closely
# Hypokalemia, increase frequency while on Lasix.
# TIFFANIE
resolving
c/w IVF
# Migraine
pt requested Imitrex
# Hypokalemia, replaced
# Hyponatremia
Mild, resolved.
# hypomagnesemia
Replace with Mg
Hypothyroid
-Continue Synthroid
GERD
-Continue PPI
Asthma -no active complaints
-Continue montelukast
-Continue inhaled steroids
-Continue as needed albuterol
DVT prophylaxis�Lovenox subcu
CODE STATUS�full code
Total time spent to see the patient, examined the patient, review data and lab result, discuss treatment plan with patient, nursing staff around 55 minutes
Anticipated Discharge: 24 - 48 hours
Subjective/Interval History
-
Date of Service: July 28, 2025
Less fever, less chills
Less diarrhea
Reports migraine, asking for Imitrex
Objective Data
-
Labs:
Laboratory Results
07/28/25
04:09
WBC 6.6
Hgb 9.4 L
Hct 26.5 L
Plt Count 156
Sodium 135
Potassium 3.4 L
Chloride 110 H
Carbon Dioxide 21 L
BUN 8
Creatinine 0.6
Glucose 106 H
Calcium 8.2 L
Total Bilirubin 0.6
AST 16
ALT 18
Alkaline Phosphatase 62
Vital Signs:
Vital Signs
Temp Pulse Resp BP Pulse Ox
99.2 F 74 16 101/64 96
07/28/25 07:00 07/28/25 08:30 07/28/25 08:30 07/28/25 07:00 07/28/25 08:30
I&O
07/27/25 07/28/25 07/29/25
06:59 06:59 05:59
Intake Total 2099 3340 / 3340
Output Total 500 / 500
Balance 2099 2840 / 2840
[2025-07-28] MEDS: TORADOL 10 MG IV ×2 (09:49→17:33)
[2025-07-28] MEDS: LASIX 40 MG IV ×2 (09:51→15:17)
--- NOTE | 2025-07-28 09:58 | W.PN.GI.CBS2 ---
Today's Communication / Plan
-
Please see assessment and plan for details.
Assessment / Plan
-
1. Diarrhea: Likely infectious given its acuity and recent travel. Stool studies negative so far. She is having significant fevers, though no leukocytosis and overall much improved with resolution of her diarrhea. She will complete a course of
antibiotics per ID, hold on further GI workup for now.
We will sign off now, please call back with any further questions.
Subjective
Subjective
Date of Service: July 28, 2025
Patient doing much better overall, fever curve trending down, no further significant diarrhea, tolerating diet without difficulty.
Objective
Data Reviewed
Laboratory Data:
Laboratory Results
07/28/25 04:09
07/28/25 04:09
Laboratory Results
Magnesium 1.5 mg/dl (1.6-2.3) L 07/28/25 04:09
Total Bilirubin 0.6 mg/dl (0.2-1.3) 07/28/25 04:09
AST 16 U/L (14-36) 07/28/25 04:09
ALT 18 U/L (0-35) 07/28/25 04:09
Alkaline Phosphatase 62 U/L (38-126) 07/28/25 04:09
Lipase 65 U/L (23-300) 07/25/25 17:33
Vital Signs and I&O:
Vital Signs
Temp Pulse Resp BP Pulse Ox
99.2 F 74 16 101/64 96
07/28/25 07:00 07/28/25 08:30 07/28/25 08:30 07/28/25 07:00 07/28/25 08:30
I&O
07/27/25 07/28/25 07/29/25
06:59 06:59 05:59
Intake Total 2099 3340 / 3340
Output Total 500 / 500
Balance 2099 2840 / 2840
Physical Exam
Physical Exam
General: NAD
Abdomen: normal bowel sounds, soft, no tenderness, no masses or bruits, no ascites
[2025-07-28 15:00] VITALS: BP 107/62
[2025-07-28] MEDS: LEVAQUIN 100 IV (17:38)
[2025-07-28] MEDS: LOVENOX 40 MG SC (17:38)
[2025-07-28 23:00] VITALS: BP 97/54
[2025-07-29] MEDS: TORADOL 10 MG IV (01:54)
[2025-07-29 06:00] VITALS: BMI 33.2
[2025-07-29] MEDS: SYNTHROID 274 MCG PO (06:07)
[2025-07-29 07:00] VITALS: BP 94/55
[2025-07-29] MEDS: FLOVENT 44 MCG INHALER 2 PUFF INH (07:32)
[2025-07-29 07:45] LABS: Hematocrit 30.2 % (37.0-47.0); Hemoglobin 10.2 g/dL (12.0-16.0); Mean Corp Hgb Conc. 33.8 g/dL (33.0-37.0); Mean Corpuscular Volume 86.5 fL (81.0-99.0); Platelet Count 182 10^3/uL (130-400); Red Cell Dist. Width 13.2 % (11.5-14.5)
[2025-07-29 08:09] LABS: Blood Urea Nitrogen 11 mg/dl (7-17); Calcium 8.4 mg/dl (8.4-10.2); Carbon Dioxide 30 mmol/L (22-30); Chloride 105 mmol/L (98-107); Estimated Creatinine Clearance 97 ml/min; Glucose 94 mg/dl (70-99); Potassium 4.1 mmol/L (3.5-5.1); Sodium 138 mmol/L (135-145); eGFR > 60.00
[2025-07-29] MEDS: CLARITIN 10 MG PO (08:57)
[2025-07-29] MEDS: VITAMIN B-12 1000 MCG PO (08:57)
[2025-07-29] MEDS: SINGULAIR 10 MG PO (08:57)
[2025-07-29] MEDS: PROTONIX 40 MG PO (08:57)
[2025-07-29] MEDS: ZYLOPRIM 100 MG PO (09:00)
--- NOTE | 2025-07-29 09:26 | W.PN.HOSP.TC ---
Today's Communication/Plan
-
dc
Assessment / Plan
Assessment / Plan
Physical Exam
General: Well Developed, Well Nourished and No Apparent Distress
HEENT: Normocephalic, Moist mucous membranes and Atraumatic
Respiratory: Clear
Cardiac: S1/S2 and Regular Rhythm; No Murmur or Rub
GI: Soft, Non Tender, Non Distended and Normal Bowel Sounds.
Rectal: no bleeding
Musculoskeletal: No Clubbing, No Cyanosis and No Edema
Skin: No Rash
Neuro: AO x 3 and Nonfocal/grossly intact
Psych: calm
60-year-old with likely traveler's diarrhea versus infectious colitis presenting to the emergency department with mild diarrhea and hypovolemia and hypokalemia with mild TIFFANIE. Due to fever chills rigors patient will be admitted for antibiotic and
fluid resuscitation.
PLAN:
# Acute infectious Diarrhea -suspect dysentery/traveler's diarrhea. No abdominal pain. Stool studies negative. Viral studies negative.
Good and significant clinical improvement with resolution of fever and chills. She is tolerating diet. Sometimes loose stool but no abdominal pain or diarrhea. No nausea or vomiting.
Stool studies and blood culture with no growth. Started on empiric Levaquin.
- Appreciate ID & GI help
# Drop in HGB & plts count, likely combination of dilutional Vs acute blood loss anemia
Non blood stools, reported brown in color
No hypotension or tachycardia
Not toxic looking
# Acute non-cardiogenic pulmonary edema from IVF and infection
She feels much better after few doses of Lasix. Giving prophylactic potassium. Lung exam is normal. No hypoxia. She lost weight. No more peripheral edema.
# Hypokalemia, resolved with potassium replaced
# TIFFANIE
Result
# Migraine
pt requested Imitrex
No headache today
# Hypokalemia, resolved
# Hyponatremia
Mild, resolved.
# hypomagnesemia
Treated
Hypothyroid
-Continue Synthroid
GERD
-Continue PPI
Asthma -no active complaints
-Continue montelukast
-Continue inhaled steroids
-Continue as needed albuterol
DVT prophylaxis�Lovenox subcu
CODE STATUS�full code
Total discharge time spent to see the patient, examined the patient, review data and lab result, discuss discharge/ treatment plan with patient, nursing staff around 67 minutes
Anticipated Discharge: Today
Subjective/Interval History
-
Date of Service: July 29, 2025
She feels better
tolerating diet
no sob, lost fluid weight
No abd pain, no fever or chills
She is requesting discharge
Objective Data
-
Labs:
Laboratory Results
07/29/25
07:19
WBC 6.2
Hgb 10.2 L
Hct 30.2 L
Plt Count 182
Sodium 138
Potassium 4.1
Chloride 105
Carbon Dioxide 30
BUN 11
Creatinine 0.7
Glucose 94
Calcium 8.4
Vital Signs:
Vital Signs
Temp Pulse Resp BP Pulse Ox
97.7 F 67 16 94/55 100
07/29/25 07:00 07/29/25 07:34 07/29/25 07:34 07/29/25 07:00 07/29/25 07:34
I&O
07/28/25 07/29/25 07/30/25
06:59 05:59 06:59
Intake Total 3340 / 3340 1959
Output Total 500 / 500
Balance 2840 / 2840 1959
[2025-07-29] MEDS: LEVAQUIN 500 MG PO (10:03)
[2025-07-29] MEDS: IMITREX 50 MG PO (10:03)
--- NOTE | 2025-07-29 10:23 | CM ---
Patient will d/c home today
No CM needs at this time
[2025-07-29 11:00] VITALS: BP 109/73
--- NOTE | 2025-07-29 12:00 | PTCARENOTE ---
pt medicated with PRN Imitrex for lingering headache with good relief, tolerating diet, diarrhea resolved, independent in room, vss, for discharge to home with her .
--- NOTE | 2025-07-29 13:08 | W.DCSUMMARY ---
Discharge Summary
Discharge Data
Date of Admission: 07/25/25
Date of Discharge: 07/29/25
-
Pending Results: No
Hospital Course
60 years old female presented to the hospital with fever, diarrhea. Patient had recent travel to [place]. No family history of similar illness in the household. Patient reported nonbloody diarrhea. Patient had mild hyponatremia at 134 and
significant hypokalemia with acute kidney injury with creatinine 1.3. Patient was given intravenous fluid with electrolytes replacement therapy. Lactic acid was normal. She did not have abdominal pain or tenderness. Patient was evaluated by
gastroenterology and ID doctors. Patient's symptoms and presentation were consistent with traveler's diarrhea, likely viral in origin. Stool studies and blood culture did not show any growth. Patient started to improve with good tolerance for
oral diet. Kidney function went back to normal. Diarrhea became less frequent. Patient had weight gain and was mostly consistent with the fluid retention. She was given short course of diuretic with potassium replacement. She was given empiric
Levaquin treatment. She did not need further antibiotic upon discharge. Patient remained hemodynamically stable was discharged home in stable condition.
Discharge Plan
-
Patient Disposition: Home (Routine Discharge)
Discharge Diagnosis/Procedures: Acute infectious diarrhea.
You are seen by GI and infectious disease doctor. You received Levaquin treatment. Blood and stool studies did not show any growth.
You had volume overload with weight gain. You were given Lasix and potassium. You were given magnesium replacement.
No need for further antibiotic therapy.
Diet: As tolerated
Referrals:
Kathrin Kessler CRNP [Family Provider, General] - in one to two weeks
Prescriptions:
Continued
montelukast 10 MG tablet
10 mg PO DAILY
biotin 5 MG capsule
10 mg PO DAILY
esomeprazole magnesium [Nexium] 40 MG capsule,delayed release(DR/EC)
40 mg PO DAILY
loratadine 10 MG tablet
10 mg PO DAILY
budesonide 32 mcg/actuation Aerosol
2 mcg INTRANASAL BID
levothyroxine [Synthroid] 137 mcg Tablet
137 mcg PO MOTUWETHFRSA
levothyroxine [Synthroid] 137 mcg Tablet
274 mcg PO FLORES
cyanocobalamin (vitamin B-12) 1,000 mcg Tablet
1,000 mcg PO DAILY
allopurinol 100 mg Tablet
100 mg PO DAILY
gemfibrozil 600 mg Tablet
600 mg PO DAILY
cholecalciferol (vitamin D3) [Vitamin D3] 25 mcg (1,000 unit) Tablet
25 mcg PO DAILY
icosapent ethyl [Vascepa] 1 gram Capsule
4 g PO DAILY
Dupixent Syringe 300 mg/2 mL Syringe
300 mg SC Q2W
Qvar RediHaler 40 mcg/actuation Hfa Aerosol Breath Activated
2 inh INHALATION R BID
Niacinamide/Tirepatide Inject
85 units SC TH
Discharge Orders:
Discharge Patient (As Directed); Ordered 07/29/25
Ordered By: Umer Chacon
Discharge Date and Time
Print Language: [place]
== END 2025-07-29 14:04 | disposition home or self-care (01) | DRG 683 ==
LOC: 3 WEST ACU 20:22
PROVIDERS: Nurse Practitioner; Nurse Practitioner Family; ADMITTING PHYSICIAN Internal Medicine; ATTENDING PHYSICIAN Internal Medicine; CONSULT PHYSICIAN Internal Medicine; EMERGENCY PHYSICIAN Emergency Medicine; FAMILY PHYSICIAN Nurse Practitioner Adult Health; OTHER PHYSICIAN Internal Medicine Infectious Disease
DX: N17.9 Acute kidney failure, unspecified (principal); E87.1 Hypo-osmolality and hyponatremia; A08.4 Viral intestinal infection, unspecified; E87.70 Fluid overload, unspecified; E87.6 Hypokalemia; E03.9 Hypothyroidism, unspecified; J45.909 Unspecified asthma, uncomplicated; E78.00 Pure hypercholesterolemia, unspecified; Z90.49 Acquired absence of other specified parts of digestive tract; K21.9 Gastro-esophageal reflux disease without esophagitis; Z88.0 Allergy status to penicillin; K66.0 Peritoneal adhesions (postprocedural) (postinfection); G43.909 Migraine, unspecified, not intractable, without status migrainosus; E83.42 Hypomagnesemia; E66.9 Obesity, unspecified; Z68.33 Body mass index [BMI] 33.0-33.9, adult; E86.1 Hypovolemia; I48.0 Paroxysmal atrial fibrillation; Z79.890 Hormone replacement therapy; Z86.0100 Personal history of colon polyps, unspecified; Z87.01 Personal history of pneumonia (recurrent); Z87.440 Personal history of urinary (tract) infections; Z87.442 Personal history of urinary calculi; Z90.710 Acquired absence of both cervix and uterus; Z79.899 Other long term (current) drug therapy
CPT/HCPCS: 71045; 80048; 80053; 82728; 83540; 83550; 83605; 83690; 83735; 83880; 84443; 85025; 85027; 86850; 86900; 86901; 87040; 87045; 87046; 87077; 87324; 87328; 87329; 87427; 87449; 87502; 87798; 87811; 89055; 94640; 96361; 96374; 96375; 99285